=== PATIENT | female | born 1950 | race Caucasian/White ===

== ENCOUNTER 2025-01-21 09:30 | Emergency (ER) | payer MEDICARE ==
[~2025-01-21] VITALS: Ht 167.6 cm; Wt 76.0 kg
[2025-01-21 09:46] VITALS: TEMP 37.1; O2SAT 99
[2025-01-21] MEDS ORDERED: AMOX1TAB16 MT (11:21)
[2025-01-21] MEDS ORDERED: OXYM30SP26 BOTHNSTRLS (11:21)
[2025-01-21 11:35] VITALS: BP 135/57; PULSE 58; RESP 18; O2SAT 100
== END 2025-01-21 11:45 | disposition home or self-care (01) ==
LOC: ER 09:30
DX: S02.2XXA Fracture of nasal bones, initial encounter for closed fracture (principal); I12.9 Hypertensive chronic kidney disease with stage 1 through stage 4 chronic kidney disease, or unspecified chronic kidney disease; N18.9 Chronic kidney disease, unspecified; Z91.040 Latex allergy status; Z98.890 Other specified postprocedural states; W19.XXXA Unspecified fall, initial encounter; Y93.89 Activity, other specified; Y92.89 Other specified places as the place of occurrence of the external cause; Y99.8 Other external cause status
CPT/HCPCS: 70486; 99284